=== PATIENT | female | born 1965 | race Caucasian/White ===

== ENCOUNTER → 2016-09-12 | Day surgery (SDC) | payer OTHER ==
[~2016-09-12] MED LIST: ALBUTEROL17 GM INH; ESTRACE0.5 MG PO; ESTRACE1 MG PO; PREDNISONE50 MG PO; PROAIR HFA8.5 GM INH; TESSALON PERLE100 M1 PO; ZITHROMAX PO
--- NOTE | ~2016-09-12 | OR ---
Unit #: [id number] #: [id number] Patient: ROBBIE DAVENPORT [id number] [address] [address] [id number] MR#: [id number] NAME: ROBBIE DAVENPORT. ROOM: Date of Procedure: 09/12/2016 Admission Date: 09/12/2016 Surgeon: Jim Connolly M.D. : 1965 Attending Physician: Jim Connolly M.D. Primary Care Physician: Rebecca De Leon A.P.R.N. OPERATIVE REPORT PRIMARY CARE PHYSICIAN Rebecca De Leon A.P.R.N. PREOPERATIVE DIAGNOSIS Colorectal cancer screening in an average-risk patient. PROCEDURE PERFORMED Colonoscopy up to cecum and terminal ileum with excellent preparation and good visualization. POSTOPERATIVE DIAGNOSES The patient had scant sigmoid and descending colon diverticulosis. Otherwise, examination was normal up to cecum and terminal ileum. The quality of prep was excellent. RECOMMENDATIONS Repeat colonoscopy in 10 years. SEDATION USED MAC. DESCRIPTION OF PROCEDURE Following detailed explanation of the potential risks and complications of a colonoscopy, namely perforation, bleeding, and complications related to sedation, the patient was brought to GI lab and laid in the left lateral decubitus position. A digital rectal examination was performed, which was normal. Lubricated tip of the Olympus video colonoscope was inserted through the anus and advanced under direct vision. The scope was advanced and passed up to sigmoid into descending colon. Scant small diverticula were noted in this area. The scope tip was then navigated all the way up to cecum with visualization of the ileocecal valve and the appendiceal orifice. Preparation was excellent with good visualization and photodocumentation was obtained. Last several inches of the terminal ileum also visualized after intubation of the ileocecal valve and appeared normal. Successive segments of the colonic mucosa were examined upon withdrawal and appeared unremarkable. There being no polyps, mass lesions, or AVMs. Other than the scant diverticula, no other abnormalities noted. The patient did not have any hemorrhoids at anal verge. She tolerated the procedure without any postprocedure complications. Unit #: [id number] #: [id number] Patient: ROBBIE DAVENPORT Dictated by... Latasha Dudley/trevor TD: 09/12/2016 23:05 JOB #: [id number] OPERATIVE REPORT Page 1 of 1 X Jim Connolly MD PROCEDURE OPERATIVE NOTE
== END | disposition home or self-care (01) ==
LOC: COPS 08:05
DX: Z12.11 Encounter for screening for malignant neoplasm of colon (principal); K57.30 Diverticulosis of large intestine without perforation or abscess without bleeding; J44.9 Chronic obstructive pulmonary disease, unspecified; F17.200 Nicotine dependence, unspecified, uncomplicated; Z90.710 Acquired absence of both cervix and uterus
CPT/HCPCS: J2250